=== PATIENT | female | born 1995 | race African-American/Black ===

== ENCOUNTER 2021-08-30 17:20 | Emergency (ER) | payer OTHER ==
[~2021-08-30] VITALS: Ht 167.6 cm; Wt 45.0 kg
[2021-08-30] MEDS ORDERED: MORPHINE SULFATE 4 MG/ML CPJ (NOT FOR IM USE) IV STA (18:22)
[2021-08-30] MEDS ORDERED: ONDANSETRON HCL 4MG/2ML INJ IV STA (18:22)
[2021-08-30 18:47] LABS: HEMATOCRIT. 33.1 % (36.0-48.0); HEMOGLOBIN. 10.5 g/dL (12.0-16.0); MEAN CORPUSCULAR HEMOGLOBIN 24.7 pg (28.0-32.0); MEAN CORPUSCULAR VOLUME 78.2 fL (81.0-99.0); MEAN PLATELET VOLUME 8.7 fl (7.4-10.4); PLATELET 321 x1000/uL (130-400); RED BLOOD CELL COUNT 4.23 mill/uL (4.2-5.4); RED CELL DISTRIBUTION WIDTH 19.6 % (11.6-14.6)
[2021-08-30 19:02] LABS: CHLORIDE 108 mEq/L (98-107)
[2021-08-30 19:05] LABS: HCG SCREEN NEGATIVE
[2021-08-30] MEDS ORDERED: IOHEXOL-300 100 ML BOTTLE ONE (19:48)
[2021-08-30 19:51] LABS: PLATELET ESTIMATE NORMAL
[2021-08-30 20:26] LABS: HEMATOCRIT. 31.8 % (36.0-48.0); MEAN CORPUSCULAR HEMOGLOBIN 24.4 pg (28.0-32.0); MEAN CORPUSCULAR VOLUME 77.9 fL (81.0-99.0); MEAN PLATELET VOLUME 8.6 fl (7.4-10.4); PLATELET 314 x1000/uL (130-400); RED BLOOD CELL COUNT 4.08 mill/uL (4.2-5.4); RED CELL DISTRIBUTION WIDTH 19.6 % (11.6-14.6)
[2021-08-30] MEDS ORDERED: CYCL10TA7 MT (21:09)
[2021-08-30] MEDS ORDERED: IBUP-2029 MT (21:09)
[2021-08-30] MEDS ORDERED: ACETAMINOPHEN 325MG TABLET PO ONE (21:15)
[2021-08-30 21:50] VITALS: BP 115/82
[2021-08-30 22:05] LABS: PLATELET ESTIMATE NORMAL
== END 2021-08-30 20:57 | disposition home or self-care (01) ==
LOC: ER 17:20
DX: R07.89 Other chest pain (principal); R51.9 Headache, unspecified; R10.84 Generalized abdominal pain; G89.11 Acute pain due to trauma; D72.829 Elevated white blood cell count, unspecified; D64.9 Anemia, unspecified; V49.59XA Passenger injured in collision with other motor vehicles in traffic accident, initial encounter; Y93.89 Activity, other specified; Y92.488 Other paved roadways as the place of occurrence of the external cause
CPT/HCPCS: 36415; 70450; 71260; 72125; 74177; 80053; 81025; 83690; 84703; 85025; 96374; 96375; 99285; J2270; J2405; Q9967